=== PATIENT | female | born 1960 | race Caucasian/White ===

== ENCOUNTER 2018-01-07 19:19 | Emergency (ER) | payer MEDICAID ==
[~2018-01-07] VITALS: Ht 160 cm; Wt 74.8 kg
[2018-01-07 19:19] VITALS: BP_SYST 149
[2018-01-07 20:44] LABS: BASOPHILS # (AUTO) 0.1 K/uL (0.0-0.2); BASOPHILS % (AUTO) 1.1 % (0.0-2.0); EOSINOPHILS # (AUTO) 0.3 K/uL (0.0-0.4); HEMATOCRIT 41.9 % (36-48); HEMOGLOBIN 13.8 g/dL (12.0-16.0); LYMPHOCYTES # (AUTO) 1.9 K/uL (1.0-5.5); LYMPHOCYTES % (AUTO) 38.2 % (20.5-51.5); MEAN CORPUSCULAR HEMOGLOBIN 28 pg (27-31); MEAN CORPUSCULAR HGB CONC 33 % (32-36); MEAN CORPUSCULAR VOLUME 85 fL (79.0-98.0); MONOCYTES # (AUTO) 0.4 K/uL (0.0-1.0); MONOCYTES % (AUTO) 8.5 % (1.7-9.3); NEUTROPHILS # (AUTO) 2.3 K/uL (1.8-7.7); NEUTROPHILS % (AUTO) 47.2 % (40.0-70.0); PLATELET COUNT (AUTO) 315 K/uL (130-430); RED BLOOD CELL COUNT(AUTO) 4.94 MIL/uL (4.2-6.2); RED CELL DISTRIBUTION WIDTH 12.6 % (9.0-15.0)
[2018-01-07 20:51] LABS: CALCIUM 9.1 mg/dL (8.4-11.0); CREATININE 0.95 mg/dL (0.55-1.30)
[2018-01-07 20:56] LABS: ALBUMIN 3.5 g/dL (3.4-4.8); TOTAL BILIRUBIN 0.2 mg/dL (0.0-1.0)
[2018-01-07 21:46] VITALS: BP_SYST 130
== END 2018-01-07 21:45 | disposition home or self-care (01) ==
LOC: SED 19:19
DX: J40 Bronchitis, not specified as acute or chronic (principal); F41.9 Anxiety disorder, unspecified; M79.7 Fibromyalgia; F17.200 Nicotine dependence, unspecified, uncomplicated; Z71.6 Tobacco abuse counseling
CPT/HCPCS: 36415; 71045; 80053; 84484; 85025; 93005; 99285

== ENCOUNTER 2019-05-09 16:56 | Emergency (ER) | payer MEDICAID ==
[~2019-05-09] VITALS: Ht 160 cm; Wt 68.0 kg
[2019-05-09 17:04] VITALS: BP_SYST 163
--- NOTE | 2019-05-09 17:07 | NUR ---
Patient to ER bed 01 to gown for evaluation. Side rails up.
--- NOTE | 2019-05-09 17:15 | NUR ---
Patient presents to the ED with c/c of a sore throat today. Patient reports the pain is moderate in severity, worse with swallowing. Pain is constant, nonradiating. Patient has a history of a throat abscess. Appetite is decreased. No medications used for the symptoms. Otherwise no cough, fever, chills, vomiting, diarrhea, chest pain, shortness of breath, or other complaints.
--- NOTE | 2019-05-09 17:18 | NUR ---
ER at bedside examining patient.
[2019-05-09] MEDS ORDERED: cefTRIAXone 1 GM in LIDOCAINE 1%, 20 ML MDV 2.1 ML IM ONE (17:45)
[2019-05-09 18:09] VITALS: BP_SYST 147
--- NOTE | 2019-05-09 18:09 | NUR ---
Patient given written and verbal discharge instructions and verbalizes understanding. ER MD discussed with patient the results and treatment provided. Patient in stable condition. ID arm band removed. Rx of Delano and Augmentin given. Patient educated on pain management and to follow up with PMD. Pain Scale 6/10. Opportunity for questions provided and answered. Medication side effect fact sheet provided.
== END 2019-05-09 18:09 | disposition home or self-care (01) ==
LOC: SED 16:56
DX: J02.9 Acute pharyngitis, unspecified (principal); F41.9 Anxiety disorder, unspecified; M79.7 Fibromyalgia
CPT/HCPCS: 86403; 87081; 96372; 99283; J0696; J2001; 36415

== ENCOUNTER 2021-05-18 14:47 | Emergency (ER) | payer MEDICAID ==
[~2021-05-18] VITALS: Ht 162.6 cm; Wt 63.5 kg
--- NOTE | 2021-05-18 14:50 | NUR ---
Patient to ER bed 6 to gown for evaluation. Side rails up. Report given to SEDRICK JACKSON.
[2021-05-18 14:55] VITALS: BP_SYST 152
--- NOTE | 2021-05-18 15:16 | NUR ---
PT ARRIVED TO ED WITH C/C OF A MID STERNAL RASH AND BUMP FOR ONE MONTH. PT STATES IT HAPPENED AFTER WEARING A SILVER NECKLACE FOR A FEW WEEKS. 0/10 PAIN. PT STATES A WEIRD ANXIETY FEELING HAS BEEN OCCURING AND WANTS TO MAKE SURE SHE IS DOING WELL.
--- NOTE | 2021-05-18 15:16 | NUR ---
ER at bedside examining patient.
--- NOTE | 2021-05-18 15:42 | NUR ---
Patient transported to radiology via WHEELCHAIR, accompanied by TECH.
--- NOTE | 2021-05-18 16:39 | NUR ---
PATIENT STATES SHE DOES NOT WANT TO WAIT FOR DISCHARGE PAPERS BUT ALREADY SPOKE TO DR TAI REGARDING DISCHARGE INSTRUCTIONS. MD AWARE. PATIENT AMBULATED WITH STEADY GAIT OUT OF ED, SPEAKING FULL SENTENCES. NO ACUTE DISTRESS NOTED AT THIS TIME.
[2021-05-18] MEDS ORDERED: SULF1TAB48 PO (16:44)
--- NOTE | 2021-05-18 16:47 | NUR ---
ER discussed with patient the results and treatment provided. Patient in stable condition. ID arm band removed. Patient educated on pain management and to follow up with PMD. Pain Scale 0/10. Opportunity for questions provided and answered. Medication side effect fact sheet provided.
[2021-05-18 16:49] VITALS: BP_SYST 152
[2021-05-19] MEDS ORDERED: ZIPR20CA2 PO (08:18)
[2021-05-19] MEDS ORDERED: CLIN150C16 PO (08:18)
== END 2021-05-18 16:49 | disposition home or self-care (01) ==
LOC: SED 14:47
DX: R22.2 Localized swelling, mass and lump, trunk (principal); F41.9 Anxiety disorder, unspecified
CPT/HCPCS: 71046-TC; 93005; 99283

== ENCOUNTER 2021-05-18 22:38 | Emergency (ER) | payer MEDICAID ==
[~2021-05-18] VITALS: Ht 160 cm; Wt 59.0 kg
[~2021-05-18 22:38] MED LIST: SULF1TAB48 PO
[2021-05-18 22:56] VITALS: BP_SYST 160
--- NOTE | 2021-05-19 | NUR ---
Patient called in x 3, no answer
--- NOTE | 2021-05-19 | NUR ---
Patient left without being seen. No furtehr treatment provided. ER aware
[2021-05-19] MEDS ORDERED: CLIN150C16 PO (08:18)
[2021-05-19] MEDS ORDERED: ZIPR20CA2 PO (08:18)
== END 2021-05-19 | disposition left against medical advice (07) ==
LOC: SED 22:38
DX: F41.9 Anxiety disorder, unspecified (principal); Z53.21 Procedure and treatment not carried out due to patient leaving prior to being seen by health care provider

== ENCOUNTER 2021-05-19 07:29 | Emergency (ER) | payer MEDICAID ==
[~2021-05-19] VITALS: Ht 157.5 cm; Wt 59.4 kg
--- NOTE | 2021-05-19 07:42 | NUR ---
Placed in room 04 . Placed on oyster shucker, blood pressure machine and pulse oximeter. To gown for exam. Side rails up.
[2021-05-19 07:43] VITALS: BP_SYST 157
--- NOTE | 2021-05-19 07:45 | NUR ---
PT WALKED IN STATING SHE IS FEELING ANXIOUS AND WOULD LIKE SOMETHING "TO CALM HER DOWN". SHE ALSO REPORTS HAVING LOST HER RX FOR AN ABX THAT SHE RECEIVED FROM THE ER YESTERDAY. PT IS RESTLESS, AAOX4, V/S STABLE
--- NOTE | 2021-05-19 07:57 | NUR ---
ER DR. DOSS AT THE BEDSIDE EXAMINING PT
[2021-05-19] MEDS ORDERED: ZIPR20CA2 PO (08:18)
[2021-05-19] MEDS ORDERED: CLIN150C16 PO (08:18)
--- NOTE | 2021-05-19 08:35 | NUR ---
PT ELOPED FROM ER Addendum: 05/19/21 at 0837 by [email or web address] PT LEFT WITHOUT DC PAPERWORK
--- NOTE | 2021-05-19 08:35 | NUR ---
Patient given verbal discharge instructions and verbalizes understanding. ER MD discussed with patient the results and treatment provided. Patient in stable condition. ID arm band removed. Rx of BACTRIM given. Patient educated on pain management and to follow up with PMD. Pain Scale 0/10. Opportunity for questions provided and answered. Medication side effect fact sheet provided. PT LEFT WITHOUT DC PAPERWORK
[2021-05-19 08:38] VITALS: BP_SYST 152
== END 2021-05-19 08:35 | disposition left against medical advice (07) ==
LOC: SED 07:29
DX: L98.8 Other specified disorders of the skin and subcutaneous tissue (principal); F29 Unspecified psychosis not due to a substance or known physiological condition; Z76.0 Encounter for issue of repeat prescription; Z88.2 Allergy status to sulfonamides; Z79.899 Other long term (current) drug therapy
CPT/HCPCS: 99281

== ENCOUNTER 2021-05-19 14:16 | Emergency (ER) | payer MEDICAID ==
[~2021-05-19 14:16] MED LIST changes: +CLIN150C16 PO; +ZIPR20CA2 PO
--- NOTE | 2021-05-19 14:16 | NUR ---
pt arrived and left EMS gurney. Pt refused to be seen by triage.
== END 2021-05-19 16:50 | disposition left against medical advice (07) ==
LOC: SED 14:16
DX: F41.9 Anxiety disorder, unspecified (principal); Z53.21 Procedure and treatment not carried out due to patient leaving prior to being seen by health care provider

== ENCOUNTER 2021-05-24 08:35 | Emergency (ER) | payer MEDICAID ==
[~2021-05-24] VITALS: Ht 162.6 cm; Wt 59.0 kg
[2021-05-24 08:52] VITALS: BP_SYST 168
--- NOTE | 2021-05-24 08:52 | NUR ---
Patient to ER bed 3 to gown for evaluation. Side rails up.
--- NOTE | 2021-05-24 08:52 | NUR ---
Pt came to ER with chest rash, appears anxious, rubbing spot. In [facility], awaiting MD.
--- NOTE | 2021-05-24 08:53 | NUR ---
ER at bedside examining patient.
[2021-05-24] MEDS ORDERED: HYDC2.5% TP (08:57)
[2021-05-24 09:07] VITALS: BP_SYST 168
--- NOTE | 2021-05-24 09:08 | NUR ---
Patient given written and verbal discharge instructions and verbalizes understanding. ER MD discussed with patient the results and treatment provided. Patient in stable condition. ID arm band removed. Rx of Hydrocortisone given. Patient educated on pain management and to follow up with PMD. Pain Scale 0/10. Opportunity for questions provided and answered. Medication side effect fact sheet provided.
== END 2021-05-24 09:07 | disposition home or self-care (01) ==
LOC: SED 08:35
DX: L30.9 Dermatitis, unspecified (principal); F41.9 Anxiety disorder, unspecified; Z88.2 Allergy status to sulfonamides; Z79.899 Other long term (current) drug therapy
CPT/HCPCS: 93005; 99283

== ENCOUNTER 2022-10-17 21:04 | Emergency (ER) | payer MEDICAID ==
[~2022-10-17] VITALS: Ht 160 cm; Wt 72.6 kg
[~2022-10-17 21:04] MED LIST changes: +CLIN-22 PO; -CLIN150C16 PO; +GEO20 PO; +HYDC2.5% TP; -ZIPR20CA2 PO
[2022-10-17 21:10] VITALS: BP_SYST 121
--- NOTE | 2022-10-17 21:30 | NUR ---
PT HERE C/O GEN BODYACHES AND COUGH X3 DAYS. PER PT SHE ALSO HAVING FEVER YESTERDAY. PMH:DENIESA PT AAOX4, NOT IN ANY DISTRESS AT THIS TIME. PT SWABBED AND SENT TO LAB. PENDING MD RIVERS
--- NOTE | 2022-10-17 21:47 | NUR ---
LAB CALLED IN RESULT. PT IS COVID (+). DR. MCGILL MADE AWARE. MASK PROVIDED. ISOLATION PRECAUTIONS INITIATED.
[2022-10-17] MEDS ORDERED: ACET-2634 PO (23:45)
[2022-10-17] MEDS ORDERED: ALBMDI INH (23:45)
[2022-10-17] MEDS ORDERED: INHA1EAC52 MC (23:45)
[2022-10-17] MEDS ORDERED: GUAI100S14 PO (23:45)
[2022-10-18] MEDS ORDERED: DOXY100T2 PO (00:26)
[2022-10-18 00:34] VITALS: BP_SYST 145
--- NOTE | 2022-10-18 00:34 | NUR ---
PT RE EVALUATED BY DR. NUNES
== END 2022-10-18 00:35 | disposition home or self-care (01) ==
LOC: SED 21:04
DX: U07.1 COVID-19 (principal); R05.9 Cough, unspecified; Z88.2 Allergy status to sulfonamides; Z79.899 Other long term (current) drug therapy
CPT/HCPCS: 36415; 99283

== ENCOUNTER 2024-02-15 03:53 | Emergency (ER) | payer MEDICAID, OTHER ==
[~2024-02-15] VITALS: Ht 160 cm; Wt 58.1 kg
[~2024-02-15 03:53] MED LIST changes: +ACET-2634 PO; +ALBMDI INH; +DOXY100T2 PO; +GUAI100S14 PO; +INHA1EAC52 MC
[2024-02-15 04:00] VITALS: BP_SYST 140; PULSE 98; RESP 18; TEMP 97.3; O2SAT 100
[2024-02-15] MEDS ORDERED: PERM60CR18 TP (04:38)
[2024-02-15 04:45] VITALS: BP_SYST 140; PULSE 98; RESP 18; TEMP 97.3; O2SAT 100
== END 2024-02-15 04:45 | disposition home or self-care (01) ==
LOC: SED 03:53
DX: B86 Scabies (principal); Z88.2 Allergy status to sulfonamides; Z79.899 Other long term (current) drug therapy
CPT/HCPCS: 99282

== ENCOUNTER 2024-07-05 09:25 | Inpatient (IN) | payer OTHER ==
[~2024-07-05] VITALS: Ht 160 cm; Wt 49.4 kg
[2024-07-05 09:25] VITALS: BP_SYST 153; PULSE 104; RESP 18; TEMP 98.7; O2SAT 97
[~2024-07-05 09:25] MED LIST changes: +PERM60CR18 TP
[2024-07-05] MEDS: IBUPROFEN 800 MG TABLET PO ONE (10:06)
[2024-07-05] MEDS: HYDROcodone/ACETAMIN 10-325 MG TAB PO ONE (10:06)
[2024-07-05 10:54] LABS: BASOPHILS % (AUTO) 0.3 % (0.0-2.0); EOSINOPHILS % (AUTO) 0.1 % (0.0-4.0); HEMATOCRIT 34.3 % (36-48); HEMOGLOBIN 10.7 g/dL (12.0-16.0); LYMPHOCYTES # (AUTO) 0.2 K/uL (1.0-5.5); LYMPHOCYTES % (AUTO) 1.5 % (20.5-51.5); MEAN CORPUSCULAR HEMOGLOBIN 23 pg (27-31); MEAN CORPUSCULAR HGB CONC 31 % (32-36); MEAN CORPUSCULAR VOLUME 75 fL (79.0-98.0); MONOCYTES # (AUTO) 0.7 K/uL (0.0-1.0); MONOCYTES % (AUTO) 5.9 % (1.7-9.3); NEUTROPHILS # (AUTO) 11.6 K/uL (1.8-7.7); NEUTROPHILS % (AUTO) 92.2 % (40.0-70.0); PLATELET COUNT (AUTO) 362 K/uL (130-430); RED BLOOD CELL COUNT(AUTO) 4.58 MIL/uL (4.2-6.2); RED CELL DISTRIBUTION WIDTH 17.1 % (9.0-15.0); WHITE BLOOD COUNT (AUTO) 12.6 K/uL (4.8-10.8)
[2024-07-05 11:44] LABS: CALCIUM 8.8 mg/dL (8.4-11.0); CREATININE 0.88 mg/dL (0.55-1.30); POTASSIUM 3.6 mmol/L (3.5-5.1)
[2024-07-05] MEDS: CLINDAMYCIN PHOSPHATE 300 MG/2 ML VIAL IV ONE (12:12)
[2024-07-05] MEDS ORDERED: CLINDAMYCIN 600 mg/50mL D5W 50 ML IV ONE (12:12)
[2024-07-05 12:21] LABS: PROTHROMBIN TIME 10.3 SECS (9.5-12.5)
[2024-07-05] MEDS: D5/0.45 NS 1,000 ML IV ONE (13:06)
[2024-07-05] MEDS ORDERED: PIPERACILLIN/TAZOBACTAM 3.375 GM/VIAL (ZOSYN) IV ONE (14:24)
[2024-07-05] MEDS: PIPERACILLIN/TAZO 3.375 GM in D5W 50 ML IV SCH (14:26)
[2024-07-05] MEDS: TETANUS IMMUNE GLOBULIN/PF 250 UNITS/SYR (HYPERTET) IM ONE (14:27)
[2024-07-05] MEDS ORDERED: DIPHTH,PERTUSS(ACELL),TET VAC 0.5 ML VIAL (Tdap) I.M. ONE (14:52)
[2024-07-05] MEDS: KCL 10 mEq in D5/0.45NS 1000mL 1,000 ML IV SCH (15:00)
[2024-07-05] MEDS: PERMETHRIN 5% 60 GM CREAM.GM. TP ONE (16:19)
[2024-07-05 19:50] VITALS: BP_SYST 140; PULSE 87; RESP 18; TEMP 98.1; O2SAT 99
[2024-07-05] MEDS: VANCOMYCIN HCL 500 MG in NS 100 ML IV SCH (20:00)
[2024-07-05] MEDS: ZIPRASIDONE HCL 20 MG CAPSULE (GEODON) PO SCH (21:00)
[2024-07-06] VITALS (7 sets, daily range): BP systolic 125–149; PULSE 65–105; RESP 15–20; TEMP 96.2–98.8; O2SAT 96–98
[2024-07-06] MEDS: KCL 10 mEq in D5/0.45NS 1000mL 1,000 ML IV ONE (00:08)
[2024-07-06] MEDS: VANCOMYCIN HCL 500 MG/VIAL IV ONE (00:09)
[2024-07-06] MEDS: PIPERACILLIN/TAZOBACTAM 3.375 GM/VIAL (ZOSYN) IV ONE ×2 (00:10→05:37)
[2024-07-06 07:53] LABS: CALCIUM 8.3 mg/dL (8.4-11.0); CREATININE 0.77 mg/dL (0.55-1.30); POTASSIUM 3.6 mmol/L (3.5-5.1)
[2024-07-06 08:30] LABS: EOSINOPHILS # (AUTO) 0.1 K/uL (0.0-0.4); HEMATOCRIT 33.8 % (36-48); HEMOGLOBIN 10.7 g/dL (12.0-16.0); NEUTROPHILS # (AUTO) 6.8 K/uL (1.8-7.7)
[2024-07-06 08:33] LABS: BASOPHILS % (AUTO) 0.3 % (0.0-2.0); EOSINOPHILS % (AUTO) 0.9 % (0.0-4.0); LYMPHOCYTES # (AUTO) 0.6 K/uL (1.0-5.5); LYMPHOCYTES % (AUTO) 6.7 % (20.5-51.5); MEAN CORPUSCULAR HEMOGLOBIN 24 pg (27-31); MEAN CORPUSCULAR HGB CONC 32 % (32-36); MEAN CORPUSCULAR VOLUME 75 fL (79.0-98.0); MONOCYTES # (AUTO) 0.8 K/uL (0.0-1.0); MONOCYTES % (AUTO) 9.9 % (1.7-9.3); NEUTROPHILS % (AUTO) 82.2 % (40.0-70.0); PLATELET COUNT (AUTO) 319 K/uL (130-430); RED BLOOD CELL COUNT(AUTO) 4.52 MIL/uL (4.2-6.2)
[2024-07-06 09:14] LABS: WHITE BLOOD COUNT (AUTO) 8.2 K/uL (4.8-10.8)
[2024-07-06 18:52] LABS: BARBITURATE, URINE NEGATIVE (NEG <=200); BENZODIAZEPINE, URINE NEGATIVE (NEG <=150); CANNABINOID, URINE NEGATIVE (NEG <=50); COCAINE, URINE NEGATIVE (NEG <=150); OPIATE, URINE NEGATIVE (NEG <=100); PHENCYCLIDINE SCREEN,URINE NEGATIVE (NEG <=25); URINE METHADONE NEGATIVE (NEG <=200); URINE OXYCODONE SCREEN NEGATIVE (NEG <=100)
[2024-07-06 18:53] LABS: METHAMPHETAMINES SCREEN,URINE POSITIVE (NEG <=500); UR TRICYCLIC ANTIDEPRESSANTS NEGATIVE (NEG <=300); URINE AMPHETAMINE POSITIVE (NEG <=500)
[2024-07-06] MEDS: DOXYCYCLINE HYCLATE 100 MG in D5W 100 ML IV SCH (22:00)
[2024-07-07 03:02] VITALS: RESP 20; TEMP 97.6
[2024-07-07 07:58] VITALS: BP_SYST 148; PULSE 91; RESP 18; TEMP 97.5; O2SAT 100
[2024-07-07 08:00] VITALS: O2SAT 100
[2024-07-07 20:00] VITALS: PULSE 86; RESP 20; TEMP 97.2; O2SAT 97
[2024-07-07 20:15] VITALS: O2SAT 97
[2024-07-08 02:29] VITALS: RESP 18; TEMP 97.2; O2SAT 97
== END 2024-07-08 18:08 | disposition left against medical advice (07) | DRG 383 ==
LOC: SED 09:25 → SMU 12:57
PROVIDERS: ADMIT Specialist; ATTEND Specialist
DX: L03.114 Cellulitis of left upper limb (principal); G92.8 Other toxic encephalopathy; Z53.29 Procedure and treatment not carried out because of patient's decision for other reasons; T43.625A Adverse effect of amphetamines, initial encounter; Y83.8 Other surgical procedures as the cause of abnormal reaction of the patient, or of later complication, without mention of misadventure at the time of the procedure; Z88.2 Allergy status to sulfonamides; Y92.89 Other specified places as the place of occurrence of the external cause; Z79.899 Other long term (current) drug therapy
CPT/HCPCS: 36415; 73200-TC; 80048; 80307; 83605; 85025; 85610; 85730; 87040; 87070; 87081; 87186; 90715; 99285; J1670; J2543; J3370; J3490; J7060